=== PATIENT | female | born 1990 | race American Indian/Alaskan Native ===

== ENCOUNTER 2017-01-20 13:17 | Observation (INO) | payer SELFPAY ==
[2017-01-20 13:48] VITALS: BP 111/69; PULSE 109; RESP 16; TEMP 98.1; O2SAT 99
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
== END 2017-01-20 17:17 | disposition home or self-care (01) ==
LOC: H.ER 13:17 → H.EROBSV 14:22
PROVIDERS: ADMIT Emergency Medicine; ATTEND Emergency Medicine
DX: S09.90XA Unspecified injury of head, initial encounter (principal); S89.92XA Unspecified injury of left lower leg, initial encounter; Y04.2XXA Assault by strike against or bumped into by another person, initial encounter; Y93.9 Activity, unspecified; Y92.9 Unspecified place or not applicable; Y99.9 Unspecified external cause status
CPT/HCPCS: 70450; 72040; 72100; 73501; 73562; 81025; 99282; G0378